=== PATIENT | male | born 1985 | race Caucasian/White ===

== ENCOUNTER 2017-08-23 07:44 | Day surgery (SDC) | payer OTHER ==
[~2017-08-23 07:44] MED LIST: Bupivacaine 0.5% 30 ML SDV ONE; Lactated Ringers 1,000 ML IV SCH; Lidocaine 2% 5 ML SDV ONE; Midazolam 1 MG/ML 2 ML SDV ONE; Ondansetron 4 MG/2 ML SDV ONE; Propofol 200 MG/20 ML SDV ONE; ceFAZolin 2 GM in Premix Bag 1 BAG IV SCH; fentaNYL 250 MCG/5 ML SDV ONE
[2017-08-23] MEDS ORDERED: Acetaminophen/HYDROcodone 325-10 MG Tab PO PRN (08:00)
[2017-08-23] MEDS ORDERED: Ketorolac 10 MG Tab PO PRN (08:00)
[2017-08-23] MEDS ORDERED: Midazolam 1 MG/ML 2 ML SDV IVPUSH PRN (08:21)
--- NOTE | 2017-08-23 08:29 | PCM.PREANE ---
Preanesthetic Assessment - Anesthesia/Transfusion/Family Hx Anesthesia History: Prior Anesthesia Without Reaction Family History of Anesthesia Reaction: No Transfusion History: No Prior Transfusion(s) - Review of Systems General: No Symptoms Pulmonary: No Symptoms Cardiovascular: No Symptoms Gastrointestinal: No Symptoms Neurological: No Symptoms Other: Reports: None - Physical Assessment NPO Status Date: 08/23/17 NPO Status Time: 00:00 Height: 5 ft 6 in Weight: 236 lb ASA Class: 2 Mental Status: Alert & Oriented x3 Airway Class: Mallampati = 2 Dentition: Reports: Normal Dentition Thyro-Mental Finger Breadths: 3 Mouth Opening Finger Breadths: 3 ROM/Head Extension: Full Lungs: Clear to Auscultation, Normal Respiratory Effort Cardiovascular: Regular Rate, Regular Rhythm - Allergies Allergies/Adverse Reactions: Allergies Allergy/AdvReac Type Severity Reaction Status Date / Time No Known Allergies Allergy Verified 08/18/17 08:17 - Blood Blood Available: No Product(s) Available: None - Anesthesia Plan Free Text/Narrative:: GLMA vs ET - Acknowledgements Anesthesia Type Planned: General Anesthesia Pt an Appropriate Candidate for the Planned Anesthesia: Yes Alternatives and Risks of Anesthesia Discussed w Pt/Guardian: Yes Pt/Guardian Understands and Agrees with Anesthesia Plan: Yes PreAnesthesia Questionnaire - Past Health History Medical/Surgical History: Denies Medical/Surgical History HEENT History: Reports: None Cardiovascular History: Reports: None Respiratory History: Reports: None Gastrointestinal History: Reports: None Genitourinary History: Reports: None Musculoskeletal History: Reports: None Neurological History: Reports: None Psychiatric History: Reports: None Endocrine/Metabolic History: Reports: Obesity/BMI 30+ Hematologic History: Reports: None Immunologic History: Reports: None Oncologic (Cancer) History: Reports: None Dermatologic History: Reports: None - Past Surgical History Head Surgeries/Procedures: Reports: None HEENT Surgical History: Reports: Adenoidectomy Cardiovascular Surgical History: Reports: None Respiratory Surgical History: Reports: None GI Surgical History: Reports: None Male Surgical History: Reports: None Neurological Surgical History: Reports: None Oncologic Surgical History: Reports: None - SUBSTANCE USE Smoking Status *Q: Never Smoker Tobacco Use Within Last Twelve Months: Smokeless Tobacco Recreational Drug Use History: No - HOME MEDS Home Medications: Home Meds traMADol HCl [Tramadol HCl] 1 tab PO TID PRN 08/18/17 [History] Hydrocodone/Acetaminophen [George 10-325 Tablet] 1 - 2 tab PO Q4H PRN #80 tablet 08/23/17 [Rx] Ketorolac Tromethamine 1 tab PO Q6H PRN #20 tablet 08/23/17 [Rx] - CURRENT (IN HOUSE) MEDS Current Meds: Current Medications Hydrocodone Bitart/Acetaminophen (George 325-10 Mg) 1 - 2 tab PO Q4H PRN PRN Reason: Pain Cefazolin Sodium/Dextrose 2 gm (/ Premix) 50 mls @ 100 mls/hr IV ONCALL FILE[facility] Lactated Ringer's (Ringers, Lactated) 1,000 mls @ 100 mls/hr IV ASDIRECTED [facility] Last Admin: 08/23/17 08:20 Dose: 100 mls/hr Acetaminophen 1,000 mg/ Premix 100 mls @ 400 mls/hr IV .ONETIME FILE[facility] Ketorolac Tromethamine (Toradol) 10 mg PO Q6H PRN PRN Reason: Pain Stop: 08/28/17 08:01 Midazolam HCl (Versed 1 Mg/Ml) 2 mg IVPUSH ONETIME PRN PRN Reason: Anxiety Discontinued Medications Bupivacaine HCl (Marcaine 0.5%) Confirm Administered Dose 30 ml .ROUTE .STK-MED ONE Stop: 08/23/17 07:44 Fentanyl (Sublimaze) Confirm Administered Dose 250 mcg .ROUTE .STK-MED ONE Stop: 08/23/17 06:43 Lidocaine (Xylocaine-Mpf 2%) Confirm Administered Dose 5 ml .ROUTE .STK-MED ONE Stop: 08/23/17 06:43 Midazolam HCl (Versed 1 Mg/Ml) Confirm Administered Dose 2 mg .ROUTE .STK-MED ONE Stop: 08/23/17 06:43 Ondansetron HCl (Zofran) Confirm Administered Dose 4 mg .ROUTE .STK-MED ONE Stop: 08/23/17 06:43 Propofol (Diprivan 20 Ml) Confirm Administered Dose 200 mg .ROUTE .STK-MED ONE Stop: 08/23/17 06:43
[2017-08-23] MEDS ORDERED: Acetaminophen 1,000 MG in Premix Bag 1 BAG IV SCH (08:30)
[2017-08-23] MEDS ORDERED: ceFAZolin 1 GM Vial ONE (10:16)
[2017-08-23] MEDS ORDERED: Sodium Chloride 0.9% 20 ML ONE (10:16)
[2017-08-23] MEDS ORDERED: ePHEDrine 50 MG/ML SDV ONE (10:20)
[2017-08-23] MEDS ORDERED: Glycopyrrolate 0.2 MG/ML SDV ONE (10:24)
[2017-08-23] MEDS ORDERED: HYDROmorphone 2 MG/ML SDV ONE (10:45)
[2017-08-23] MEDS ORDERED: Metoprolol Tartrate 5 MG/5 ML SDV ONE (10:52)
[2017-08-23] MEDS ORDERED: fentaNYL 100 MCG/2 ML SDV ONE (11:02)
[2017-08-23] MEDS ORDERED: Bupivacaine 0.25% 10 ML SDV ONE (11:44)
--- NOTE | 2017-08-23 11:58 | PCM.OPNOTE ---
- General Post-Op/Procedure Note Date of Surgery/Procedure: 08/23/17 Operative Procedure(s): L knee scope with PMM/PLM and ACL reconstruction using allograft Post-Op Diagnosis: L knee med/lat meniscus tear, ACL tear Anesthesia Technique: General ET Tube Primary Surgeon: Kimmy Manuel Live In Housekeeper: Kamilah Hoang Live In Housekeeper: Randolph Calix in mLs: 10 Condition: Good Free Text/Narrative:: tt=64 min #[id number]
[2017-08-23] MEDS: fentaNYL 100 MCG/2 ML SDV IVPUSH PRN ×2 (12:49→12:54)
--- NOTE | 2017-08-23 13:03 | PCM.POSTAN ---
POST ANESTHESIA ASSESSMENT - MENTAL STATUS Mental Status: Alert, Oriented - VITAL SIGNS Pulse Rate: 99 SaO2: 99 Resp Rate: 16 Blood Pressure: 116/73 - RESPIRATORY Respiratory Status: Respiratory Rate WNL, Airway Patent, O2 Saturation Stable, Supplemental Oxygen (per nc) - CARDIOVASCULAR CV Status: Pulse Rate WNL, Blood Pressure Stable - GASTROINTESTINAL GI Status: No Symptoms - PAIN Pain Score: 5 (Pt receiving 0.5 mg dilaudid, then to SDS) - POST OP HYDRATION Hydration Status: Adequate & Stable - OBSERVATIONS Free Text/Narrative:: Pt states pain control better - will give 0.5 mg dilaudid then tx to SDS for phase II recovery.
[2017-08-23] MEDS: HYDROmorphone 2 MG/ML SDV IVPUSH PRN ×3 (13:05→13:25)
--- NOTE | 2017-08-23 14:22 | PCM48HPAN ---
Post Anesthesia Note - EVALUATION WITHIN 48HRS OF ANESTHETIC Vital Signs in Normal Range: Yes Patient Participated in Evaluation: Yes Respiratory Function Stable: Yes Airway Patent: Yes Cardiovascular Function Stable: Yes Hydration Status Stable: Yes Pain Control Satisfactory: Yes Nausea and Vomiting Control Satisfactory: Yes Mental Status Recovered: Yes Pulse Rate: 99 Resp Rate: 11 Blood Pressure: 116/73 - COMMENTS/OBSERVATIONS Free Text/Narrative:: no anesthesia problems
[2017-08-23 14:35] VITALS: BP 115/76
[2017-08-23] MEDS ORDERED: Ondansetron 4 MG Tab.DIS PO ONE (14:35)
--- NOTE | 2017-08-23 19:07 | OR ---
SURGEON: Kimmy Manuel MD DATE OF PROCEDURE: 08/23/2017 PREOPERATIVE DIAGNOSES: 1. Left knee ACL tear. 2. Left knee medial meniscus tear. POSTOPERATIVE DIAGNOSES: 1. Left knee ACL tear. 2. Left knee medial meniscus tear. 3. Left knee lateral meniscus tear. PROCEDURES: Left knee arthroscopy with partial medial and lateral meniscectomies, and arthroscopically aided anterior cruciate ligament reconstruction using allograft. ASSISTANTS: Kamilah Hoang PA-C and Randolph Fang MD, PGY3. ANESTHESIA: General. ESTIMATED BLOOD LOSS: 10 mL. TOURNIQUET TIME: 64 minutes. COMPLICATIONS: None. DVT PROPHYLAXIS: PAS boot to the nonoperative leg. IMPLANTS USED: See operative record. BRIEF HISTORY: Zain is a 32-year-old male, who sustained an injury to his left knee approximately 5 years ago in [place] while he was playing soccer. He is continued to have intermittent left knee pain along with recurrent instability. Due to his lack of response to conservative treatment, I did recommend surgical intervention. The risks and goals of procedure were discussed with the patient and were documented preoperatively. He agreed to proceed. DESCRIPTION OF PROCEDURE: The patient was properly identified and brought to the operating room. He was transferred from the OR cart and placed on the operating table in supine position. General anesthesia was administered. After adequate anesthesia was obtained, a well-padded tourniquet was applied to the left lower extremity. The left lower extremity was then prepped in standard fashion using ChloraPrep solution. It was then sterilely draped. A time-out was performed to ensure correct site and procedure. Preoperative antibiotics were given. The surgical site had been marked preoperatively. An Esmarch was used to exsanguinate the left lower extremity and the tourniquet was inflated to 250 mmHg. A lateral portal arthrotomy was established. Blunt trocar and cannula were introduced into the suprapatellar pouch. Camera, inflow, and outflow were assembled. No significant synovitis was noted. The patellofemoral joint was visualized. No significant degenerative changes were noted along the patellofemoral joint and the patella appeared to track centrally. I then extended down the lateral and medial gutter. No loose bodies were identified. I then entered the medial compartment. A medial portal arthrotomy was established. A blunt probe was inserted. A radial tear was noted along the posterior horn of the medial meniscus, which extended horizontally along the posterolateral aspect. The meniscus was probed. This tear appeared to be quite degenerative in nature. The tear was quite central and did not appear to be amenable to repair. Using a combination of biters and shaver, the partial medial meniscectomy was performed. The remainder of the meniscus was probed and was found to be stable. The cartilage surfaces showed no significant degenerative findings. I then entered the notch. The PCL was visualized. The ACL was completely detached from the lateral femoral condyle and appeared to be scarred to the posterior cruciate ligament. I then entered the lateral compartment. 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 No loose cartilage fragments were noted. The meniscus was probed. He was found to have a degenerative radial tear along the posterior horn of the lateral meniscus. Using a combination of biters and shaver, this was resected back to a stable remnant. A longitudinal split remained along the posterior horn. Both the superior and inferior portions were probed and were found to be stable. I then re-entered the notch. The soft tissue overlying the wall of the lateral femoral condyle was debrided with both electrocautery and a shaver. A notchplasty was used to improve visualization of the lateral femoral condyle. A large curette was used to clear the soft tissue posteriorly and to make sure that we had adequate visualization of the entire lateral femoral condyle. The tibial attachment of the attachment of the ACL was then cleared off soft tissue as well. The knee was then brought into extension. An incision was made over the anteromedial aspect of the tibia. Subcutaneous tissues were incised down to the level of the periosteum. This was incised and elevated. The tibial guide was placed into proper position with approximately 55 degrees angulation. A guide pin was then drilled into the footprint of the ACL. Its position was approximately 7 mm anterior to the PCL and appeared to be in line with the anterior horn of the lateral meniscus. The graft had been prepared preoperatively on the back table in standard fashion. It was measured to be approximately 9 mm in diameter. A 10 mm reamer was then placed over the guide pin and the tibia tunnel was drilled. A shaver was then placed into the knee to remove the bony debris. I did use a shaver to smooth the posterior edge of the tibial tunnel as well. A cannula was then placed to help with water management. We then turned our attention to the femoral tunnel. The femoral guide was placed. The position of the femoral tunnel was checked. It was in an inferior and posterior position, which was felt to be nearly anatomic. A small incision was made over the lateral aspect of the distal thigh, and the cannula was passed down to the bone. The switch cutter guide pin was then drilled into the notch. The position of the switch cutter was acceptable. The frozen meat cutter was deployed, and it was felt that there would be good positioning of the femoral tunnel. Preoperative measurement of the graft showed a femoral tunnel length of approximately 25 mm. The switch cutter was then flipped in a retrograde manner and the femoral tunnel was drilled without difficulty to approximately 30 mm. Bony debris was again removed from the knee. The femoral tunnel was then visualized and it was felt to be an acceptable anatomic position. The switch cutter was then removed along with the lateral cannula. The graft was then passed into the anteromedial portal. The looped suture from the graft was then transferred down through the tibial tunnel and secured. The ACL graft was then placed into the femoral tunnel with the AperFix femoral implant loaded. This was passed into the femoral tunnel to the predetermined marking, which had been applied to the graft preoperatively. Once we had adequate depth of the femoral graft, this was tightened and secured. The separate graft ends were then passed through the tibial tunnel separately. The overall position of the graft within the notch looked quite good. Tension was held on the tibial graft portion, and the knee was taken through a range of motion. No pistoning of the graft was noted. There did not appear to be any impingement with either the ACL or the lateral femoral condyle. The knee was then brought into full extension. Tension was applied to the graft ends. An AperFix tibial implant was then placed over the guide pin into the tibial tunnel, between the limbs of the graft. Once this was secured, the tibial screw was then placed without difficulty. We did use a camera to return intra-articularly to observe the graft. There appeared to be good tensioning of the graft as it was probed. It was again taken through a range of motion and was found to be secured. I also performed a Irineo's exam, which showed no anterior translation of the tibia. At this time, the extra graft from the tibia was removed using a scalpel. The periosteum was closed over the tibial screw using 0 Vicryl. The tourniquet was then deflated. No significant bleeding was noted. The subcutaneous tissues were closed with 3-0 Vicryl, and the skin was closed with a running 4-0 Monocryl suture. Steri-Strips and Benzoin were applied. 3-0 nylon was used to close the portal sites. 1% Lidocaine was injected along the incisions. Xeroform gauze was placed over the wound and a bulky dressing was applied. He was then placed into a well-padded [place] brace keeping the knee in full extension. He was awakened from his anesthetic and transferred back to the operating room cart. He was brought to recovery room in stable condition. All needle and sponge counts were correct. RELL / QUINN /[id number]
== END 2017-08-23 15:00 | disposition home or self-care (01) ==
LOC: MW.SDS 07:44
PROVIDERS: ATTEND Orthopaedic Surgery
DX: S83.512A Sprain of anterior cruciate ligament of left knee, initial encounter (principal); S83.242A Other tear of medial meniscus, current injury, left knee, initial encounter; S83.282A Other tear of lateral meniscus, current injury, left knee, initial encounter; E66.9 Obesity, unspecified; Z68.37 Body mass index [BMI] 37.0-37.9, adult; Z90.49 Acquired absence of other specified parts of digestive tract
CPT/HCPCS: 29880; 29888; A9270; C1776; J0690; J1170; J2250; J2405; J3010; J7120; 01400; 88304; C1762; J2704

== ENCOUNTER 2018-08-13 07:52 | Day surgery (SDC) | payer OTHER ==
[~2018-08-13 07:52] MED LIST changes: -Bupivacaine 0.5% 30 ML SDV ONE; +Lidocaine 1% 20 ML MDV ONE; -Lidocaine 2% 5 ML SDV ONE; -Midazolam 1 MG/ML 2 ML SDV ONE; -Ondansetron 4 MG/2 ML SDV ONE; -Propofol 200 MG/20 ML SDV ONE; -ceFAZolin 2 GM in Premix Bag 1 BAG IV SCH; -fentaNYL 250 MCG/5 ML SDV ONE
[2018-08-13] MEDS ORDERED: ceFAZolin 2 GM in Premix Bag 1 BAG IV SCH (08:00)
[2018-08-13] MEDS ORDERED: Acetaminophen/HYDROcodone 325-5 MG Tab PO PRN (08:00)
[2018-08-13] MEDS ORDERED: Propofol 200 MG/20 ML SDV ONE (08:39)
[2018-08-13] MEDS ORDERED: Midazolam 1 MG/ML 2 ML SDV ONE (08:39)
[2018-08-13] MEDS ORDERED: fentaNYL 250 MCG/5 ML SDV ONE (08:39)
[2018-08-13] MEDS ORDERED: Dexamethasone 4 MG/ML 5 ML MDV ONE (08:41)
[2018-08-13] MEDS ORDERED: Ondansetron 4 MG/2 ML SDV ONE (08:41)
[2018-08-13] MEDS ORDERED: ceFAZolin/Dextrose,Iso-Osmotic 2 GM/50 ML Duplex Bag IV ONE (09:12)
--- NOTE | 2018-08-13 09:32 | PCM.PREANE ---
Preanesthetic Assessment - Anesthesia/Transfusion/Family Hx Anesthesia History: Prior Anesthesia Without Reaction Type of Anesthesia Reaction: Excessive Nausea/Vomiting Family History of Anesthesia Reaction: No Transfusion History: No Prior Transfusion(s) - Review of Systems General: No Symptoms Pulmonary: No Symptoms Cardiovascular: No Symptoms Gastrointestinal: No Symptoms Neurological: No Symptoms Other: Reports: None - Physical Assessment NPO Status Date: 08/12/18 O2 Sat by Pulse Oximetry: 96 Respiratory Rate: 16 Vital Signs: Last Vital Signs Temp 97.3 F 08/13/18 08:37 Pulse 62 08/13/18 08:37 Resp 16 08/13/18 08:37 BP 114/72 08/13/18 08:37 Pulse Ox 96 08/13/18 08:37 Height: 5 ft 6 in Weight: 102.058 kg ASA Class: 2 Mental Status: Alert & Oriented x3 Airway Class: Mallampati = 1 Dentition: Reports: Normal Dentition ROM/Head Extension: Full Lungs: Clear to Auscultation, Normal Respiratory Effort Cardiovascular: Regular Rate, Regular Rhythm - Allergies Allergies/Adverse Reactions: Allergies Allergy/AdvReac Type Severity Reaction Status Date / Time No Known Allergies Allergy Verified 08/08/18 12:40 - Blood Blood Available: No - Anesthesia Plan Pre-Op Medication Ordered: None - Acknowledgements Anesthesia Type Planned: General Anesthesia Pt an Appropriate Candidate for the Planned Anesthesia: Yes Alternatives and Risks of Anesthesia Discussed w Pt/Guardian: Yes Pt/Guardian Understands and Agrees with Anesthesia Plan: Yes PreAnesthesia Questionnaire - Past Health History Medical/Surgical History: Denies Medical/Surgical History HEENT History: Reports: None Cardiovascular History: Reports: None Respiratory History: Reports: None Gastrointestinal History: Reports: None Genitourinary History: Reports: None Musculoskeletal History: Reports: None Neurological History: Reports: None Psychiatric History: Reports: None Endocrine/Metabolic History: Reports: Obesity/BMI 30+ Hematologic History: Reports: None Immunologic History: Reports: None Oncologic (Cancer) History: Reports: None Dermatologic History: Reports: None - Past Surgical History Head Surgeries/Procedures: Reports: None HEENT Surgical History: Reports: Adenoidectomy Cardiovascular Surgical History: Reports: None Respiratory Surgical History: Reports: None GI Surgical History: Reports: None Male Surgical History: Reports: None Neurological Surgical History: Reports: None Musculoskeletal Surgical History: Reports: Arthroscopic Knee Other Musculoskeletal Surgeries/Procedures:: hx left knee arthroscopy Oncologic Surgical History: Reports: None - SUBSTANCE USE Tobacco Use Within Last Twelve Months: Other (See Below) Recreational Drug Use History: No - HOME MEDS Home Medications: Home Meds . [No Known Home Meds] 08/08/18 [History] - CURRENT (IN HOUSE) MEDS Current Meds: Current Medications Hydrocodone Bitart/Acetaminophen ([place] 325-5 Mg) 1 - 2 tab PO Q4H PRN PRN Reason: Pain Fentanyl (Sublimaze) 50 mcg IVPUSH Q5M PRN PRN Reason: Pain (severe 7-10) Stop: 08/13/18 12:00 Cefazolin Sodium/Dextrose 2 gm (/ Premix) 50 mls @ 100 mls/hr IV ONCALL [facility] Lactated Ringer's (Ringers, Lactated) 1,000 mls @ 100 mls/hr IV ASDIRECTED [facility] Last Admin: 08/13/18 08:55 Dose: 100 mls/hr Discontinued Medications Cefazolin Sodium/Dextrose (Ancef) Confirm Administered Dose 2 gm IV .STK-MED ONE Stop: 08/13/18 09:13 Dexamethasone (Dexamethasone) Confirm Administered Dose 20 mg .ROUTE .STK-MED ONE Stop: 08/13/18 08:42 Fentanyl (Sublimaze) Confirm Administered Dose 250 mcg .ROUTE .STK-MED ONE Stop: 08/13/18 08:40 Lidocaine HCl (Xylocaine-Mpf 1%) Confirm Administered Dose 5 mls @ as directed .ROUTE .STK-MED ONE Stop: 08/13/18 08:42 Lidocaine HCl (Xylocaine 1%) Confirm Administered Dose 20 ml .ROUTE .STK-MED ONE Stop: 08/13/18 07:46 Midazolam HCl (Versed 1 Mg/Ml) Confirm Administered Dose 2 mg .ROUTE .STK-MED ONE Stop: 08/13/18 08:40 Ondansetron HCl (Zofran) Confirm Administered Dose 4 mg .ROUTE .STK-MED ONE Stop: 08/13/18 08:42 Propofol (Diprivan 20 Ml) Confirm Administered Dose 200 mg .ROUTE .STK-MED ONE Stop: 08/13/18 08:40
--- NOTE | 2018-08-13 10:28 | PCM.OPNOTE ---
- General Post-Op/Procedure Note Date of Surgery/Procedure: 08/13/18 Operative Procedure(s): L knee arthroscopy with PLM and excision of FB Post-Op Diagnosis: L knee foreign body, lateral meniscus tear Anesthesia Technique: General LMA Primary Surgeon: Kimmy Manuel Bath Steward: Kamilah Hoang in mLs: 5 Condition: Good Free Text/Narrative:: tt=22 min #[id number]
[2018-08-13] MEDS ORDERED: Acetaminophen 1,000 MG in Premix Bag 1 BAG IV ONE (10:49)
--- NOTE | 2018-08-13 10:50 | PCM.POSTAN ---
POST ANESTHESIA ASSESSMENT - MENTAL STATUS Mental Status: Alert, Oriented - RESPIRATORY Respiratory Status: Respiratory Rate WNL, Airway Patent, O2 Saturation Stable - CARDIOVASCULAR CV Status: Pulse Rate WNL, Blood Pressure Stable - GASTROINTESTINAL GI Status: No Symptoms - POST OP HYDRATION Hydration Status: Adequate & Stable
--- NOTE | 2018-08-13 10:51 | PCM48HPAN ---
Post Anesthesia Note - EVALUATION WITHIN 48HRS OF ANESTHETIC Vital Signs in Normal Range: Yes Patient Participated in Evaluation: Yes Respiratory Function Stable: Yes Airway Patent: Yes Cardiovascular Function Stable: Yes Hydration Status Stable: Yes Pain Control Satisfactory: Yes Nausea and Vomiting Control Satisfactory: Yes Mental Status Recovered: Yes Resp Rate: 8
[2018-08-13] MEDS: fentaNYL 100 MCG/2 ML SDV IVPUSH PRN ×2 (11:00→11:05)
[2018-08-13] MEDS ORDERED: oxyCODONE 5 MG Tab PO ONE (11:54)
[2018-08-13 12:27] VITALS: BP 120/64
--- NOTE | 2018-08-13 13:13 | OR ---
SURGEON: Kimmy Manuel MD DATE OF PROCEDURE: 08/13/2018 PREOPERATIVE DIAGNOSIS: Left knee foreign body. POSTOPERATIVE DIAGNOSES: 1. Left knee foreign body. 2. Left knee lateral meniscus tear. PROCEDURES: Left knee arthroscopy with: 1. Partial lateral meniscectomy. 2. Excision of foreign body. FOIL WRAPPER: Kamilah Hoang PA-C ANESTHESIA: General. ESTIMATED BLOOD LOSS: 5 mL. TOURNIQUET TIME: 22 minutes. COMPLICATIONS: None. DVT PROPHYLAXIS: Not indicated. IMPLANTS USED: None. BRIEF HISTORY: Zain is a 33-year-old male who underwent ACL reconstruction approximately 1 year ago. He did well following this surgery. He has been bothered by persistent pain and occasional locking in the knee. X-rays were obtained, which did show a portion of the AperFix femoral fixation to have dislodged from the femur and was found to be intra-articular. At that time, I recommended excision of the foreign body. The risks and goals of procedure were discussed with the patient and were documented preoperatively. He agreed to proceed. DESCRIPTION OF PROCEDURE: The patient was properly identified and brought to the operating room. He was transferred from the OR cart and placed on the operating table in supine position. General anesthesia was administered. After adequate anesthesia was obtained, a well-padded tourniquet was applied to the left lower extremity. The left lower extremity was then prepped in standard fashion using ChloraPrep solution. It was then sterilely draped. A time-out was performed to ensure correct site and procedure. Preoperative antibiotics were given. The surgical site had been marked preoperatively. An Esmarch was used to exsanguinate the left lower extremity and the tourniquet was inflated to 250 mmHg. A lateral portal arthrotomy was established at the site of the previous portal. Blunt trocar and cannula were introduced into the suprapatellar pouch. Camera, inflow, and outflow were assembled. Minor scar adhesions were noted within the suprapatellar pouch, however, no synovitis was noted. The patellofemoral joint was visualized. Joint surfaces appeared pristine and the patella appeared to track centrally. I then extended down the lateral and medial gutter. No loose bodies were identified. I then entered the medial compartment. A medial portal arthrotomy was established to the site of the previous portal. A blunt probe was inserted. The meniscus was extensively probed. No tearing was noted. The joint surfaces showed diffuse grade 1 to grade 2 chondromalacia. No loose cartilage flaps were noted. I then entered the notch. The ACL was visualized. The ACL graft did have 3 limbs. The anterior limb appeared to be quite worn. A 4.5 mm shaver was used to resect any loose fibers. The remainder of the ACL was visualized and probed. It was found to be intact and had good attachment to the femur and tibia. The PCL was also intact. I then entered the lateral compartment. The lateral meniscus was probed. He was found to have a radial tear of the posterior horn of the lateral meniscus. Using a combination of biters and shaver, this was resected back to a stable remnant. A horizontal cleft was noted along the posterior horn of the meniscus. However, the superior and inferior clefts appeared to be quite stable and it was elected to leave this intact. The cartilage surfaces were then inspected. Minor grade 1 chondromalacia was noted along the lateral tibial plateau as well as the lateral femoral condyle. Along the far lateral portion of both, a groove measuring approximately 5 mm x 15 mm was noted. This was presumed to be the site where the screw was wearing. I was able to visualize into the posterior aspect of the knee and the screw was visualized. A grasper was used to remove the screw without difficulty. No loose cartilage fragments were noted. The groove appeared to be lateral to the weightbearing surface. The instruments were then removed from the knee. The portal sites were closed with 3-0 nylon. Lidocaine 1% was injected along the portal tracts. Xeroform gauze was placed over the wound and a bulky dressing was applied. The tourniquet was then deflated. He was awakened from his anesthetic and transferred back to the operating room cart. He was brought to recovery room in stable condition. All needle and sponge counts were correct. RELL / QUINN /[id number] TIFFANIE
== END 2018-08-13 12:24 | disposition home or self-care (01) ==
LOC: MW.SDS 07:52
PROVIDERS: ATTEND Orthopaedic Surgery
DX: T84.127A Displacement of internal fixation device of bone of left lower leg, initial encounter (principal); S83.282A Other tear of lateral meniscus, current injury, left knee, initial encounter; T84.84XA Pain due to internal orthopedic prosthetic devices, implants and grafts, initial encounter; M94.262 Chondromalacia, left knee; E66.9 Obesity, unspecified; F17.220 Nicotine dependence, chewing tobacco, uncomplicated; H91.91 Unspecified hearing loss, right ear; X58.XXXA Exposure to other specified factors, initial encounter
CPT/HCPCS: 29881; A9270; J0131; J0690; J1100; J2250; J2405; J2704; J3010; J7120